=== PATIENT | female | born 1975 | race Caucasian/White ===

== ENCOUNTER 2021-04-13 23:00 | Emergency (ER) | payer OTHER ==
[2021-04-13] MEDS ORDERED: Ondansetron 4 MG Tab.DIS PO ONE (23:26)
[2021-04-13] MEDS ORDERED: Acetaminophen/oxyCODONE 325-5 MG Tab PO ONE (23:27)
[2021-04-13] MEDS ORDERED: Amoxicillin/Clavulanate K 500-125 MG Tab PO ONE (23:27)
--- NOTE | 2021-04-13 23:29 | EDM.PDOC ---
ED HPI GENERAL MEDICAL PROBLEM - General Chief Complaint: ENT Problem Stated Complaint: PAIN FROM A BROKEN TOOTH Time Seen by Provider: 04/13/21 23:23 Source of Information: Reports: Patient History Limitations: Reports: No Limitations - History of Present Illness INITIAL COMMENTS - FREE TEXT/NARRATIVE: 45-year-old female presents to the ED with pain coming from solitary right upper molar tooth. The rest of been removed. This appears to be her second molar tooth that is involved. She thinks that she broke the tooth off a few days ago. It is constant throbbing pulsating pain in the right side of her face towards her right ear. Difficult to eat on that side. Tylenol Motrin so far at home have not relieved the pain. Onset: Gradual Onset Date: 04/10/21 Duration: Day(s):, Getting Worse Location: Reports: Face (Dental pain right upper molar) Quality: Reports: Ache, Throbbing, Other Severity: Moderate (Sating) Improves with: Reports: None ( to 10) Worsens with: Reports: Other (Planning to eat or chew.) Associated Symptoms: Reports: No Other Symptoms Treatments SPECIMEN COLLECTOR: Reports: Acetaminophen, NSAIDS (Membreno.) Right Upper Tooth/Teeth Pain Score (Numeric/FACES): 10 - Related Data Allergies Allergy/AdvReac Type Severity Reaction Status Date / Time alcohol Allergy Difficulty Verified 04/13/21 23:19 Breathing cortisone Allergy Swelling Verified 04/13/21 23:19 ropinirole [From Requip] Allergy Nausea and Verified 04/13/21 23:19 Vomiting Home Meds: Home Meds Clindamycin HCl 300 mg PO TID #24 capsule 04/13/21 [Rx] oxyCODONE HCl/Acetaminophen [Percocet 5-325 mg Tablet] 1 - 2 each PO Q4H PRN #16 tablet 04/13/21 [Rx] Past Medical History Endocrine/Metabolic History: Reports: Obesity/BMI 30+ ED ROS ENT - Review of Systems Review Of Systems: See Below Constitutional: Reports: Fatigue, Decreased Appetite (Not sleeping well the last few nights.). Denies: Fever, Chills, Malaise, Weakness HEENT: Reports: Dental Pain Respiratory: Reports: No Symptoms (Right upper molar tooth. She only has one present the rest of been previously excised.) Cardiovascular: Reports: No Symptoms Endocrine: Reports: No Symptoms GI/Abdominal: Reports: No Symptoms : Reports: No Symptoms Musculoskeletal: Reports: No Symptoms Skin: Reports: No Symptoms Neurological: Reports: No Symptoms Psychiatric: Reports: No Symptoms Hematologic/Lymphatic: Reports: No Symptoms Immunologic: Reports: No Symptoms ED EXAM, ENT - Physical Exam Exam: See Below Exam Limited By: No Limitations General Appearance: Alert, WD/WN, Mild Distress, Other (Patient is holding onto her right mandible and pain. Temperature is 36.7 with a heart rate of 93 in sinus respiratory is 20 with O2 sats 100% room air. BP is 133/84.) Eye Exam: Bilateral Eye: Normal Inspection (No scleral icterus or blepharal pallor.), PERRL Mouth/Throat: Dental Pain (Patient's pain is coming from her right upper second molar tooth which is the only tooth in that area. It appears to have a dental carry on the anterior surface and is been previously filled. The surrounding gingiva are markedly inflamed and swollen both on the buccal and lingual surfaces. There ) Head: Atraumatic, Normocephalic Neck: Normal Inspection, Supple, Non-Tender, Full Range of Motion. No: Lymphadenopathy (L), Lymphadenopathy (R) Respiratory/Chest: No Respiratory Distress Course - Vital Signs Last Recorded V/S: Last Vital Signs Temp 36.7 C 04/13/21 23:10 Pulse 93 04/13/21 23:10 Resp 20 04/13/21 23:10 BP 133/84 04/13/21 23:10 Pulse Ox 100 04/13/21 23:10 - Orders/Labs/Meds Meds: Medications Discontinued Medications Generic Name Dose Route Start Last Admin Trade Name Kath PRN Reason Stop Dose Admin Amoxicillin/Clavulanate Potassium 1 tab 04/13/21 23:27 04/13/21 23:41 Amoxicillin/Clavulanate K 500-125 Mg Tab PO 04/13/21 23:28 1 tab ONETIME ONE Administration Ondansetron HCl 4 mg 04/13/21 23:26 04/13/21 23:41 Ondansetron 4 Mg Tab.Dis PO 04/13/21 23:27 4 mg ONETIME ONE Administration Oxycodone/Acetaminophen 2 tab 04/13/21 23:27 04/13/21 23:41 Acetaminophen/Oxycodone 325-5 Mg Tab PO 04/13/21 23:28 2 tab ONETIME ONE Administration - Radiology Interpretation Free Text/Narrative:: 45-year-old female presents to the ED with a 3-day history of increasing pain right upper second molar tooth. She believes that the tooth is fractured a few days ago. However on examination the tooth is just badly infected clinically. There is dental caries. The tooth is been previously filled. It is her second molar tooth and is the only tooth that still available are still present in the right upper maxilla. Treatment will be started in the ED with Augmentin 500/125 mg tablet by mouth and Percocet 5/325 mg tablet x2 with Zofran 4 mg sublingual for pain and nausea relief. The plan will be to place her on Percocet tabs 5/322 5 mg tablets 1 or 2 every 4-6 hours necessary for pain relief with Motrin 600 mg every 6 hours. Antibiotic as an outpatient will be clindamycin 300 mg 3 times daily for the next 8 days. Patient will seek out dental care when available this next week. Departure - Departure Time of Disposition: 23:27 Disposition: Home, Self-Care 01 Condition: Fair Clinical Impression: Dental infection - Discharge Information *PRESCRIPTION DRUG MONITORING PROGRAM REVIEWED*: Not Applicable *COPY OF PRESCRIPTION DRUG MONITORING REPORT IN PATIENT ERNA: Not Applicable Prescriptions: Clindamycin HCl 300 mg PO TID #24 capsule oxyCODONE HCl/Acetaminophen [Percocet 5-325 mg Tablet] 1 - 2 each PO Q4H PRN #16 tablet PRN Reason: pain relief. Instructions: Dental Abscess, [id number] Referrals: PCP,Not In Area [Primary Care Provider] - Forms: ED Department Discharge Additional Instructions: Evaluation in the emergency room today in regards to painful right upper second molar tooth. The tooth is badly decayed and likely has an underlying infection. It has been filled in the past. The surrounding gingiva around the tooth is significantly swollen and inflamed suggesting underlying infective process. The tooth has a bad dental caries which is likely causing pain. Treatment in the ED was Percocet 5/3 2 5 mg tablets x2 with Zofran 4 mg under the tongue to make sure that the pain medicine does not make you throw up. First dose of antibiotic was Augmentin 500 mg by mouth as well. Treatment at [facility] as an outpatient will be to have the tooth seen by dentist as soon as possible. You will need to take antibiotic clindamycin 300 mg 3 times daily for the next 8 days and Percocet tabs 5/3 2 5 mg strength 1 or 2 every 4-6 hours with Motrin 600 mg every 6 hours to relieve pain and inflammation. Very often 1 pain pill and 600 mg of Motrin every 6 hours will bring the pain under control. Sepsis Event Note (ED) - Evaluation Sepsis Screening Result: No Definite Risk - Focused Exam Vital Signs: Vital Signs Temp Pulse Resp BP Pulse Ox 04/13/21 23:10 36.7 C 93 20 133/84 100
== END 2021-04-14 00:20 | disposition home or self-care (01) ==
LOC: JD.ED 23:00
DX: K04.7 Periapical abscess without sinus (principal); E66.9 Obesity, unspecified; Z68.35 Body mass index [BMI] 35.0-35.9, adult; Z88.8 Allergy status to other drugs, medicaments and biological substances
CPT/HCPCS: 99282; A9270; 99283

== ENCOUNTER 2021-07-09 00:54 | Emergency (ER) | payer MEDICAID ==
--- NOTE | 2021-07-09 02:08 | EDM.PDOC ---
ED HPI GENERAL MEDICAL PROBLEM - General Chief Complaint: Genitourinary Problem Stated Complaint: LOSS OF BLADDER CONTROL Time Seen by Provider: 07/09/21 02:08 - History of Present Illness INITIAL COMMENTS - FREE TEXT/NARRATIVE: 45-year-old female presents to the emergency room with urinary complaint. Over the last 5 or 6 days the patient's had difficulty controlling her urine. At times she has no warning before she has to go and will start dribbling. She has some frequency but has not had a lot of discomfort when she goes. Has not had any fevers or chills. She has not had any blood. She has had a significant history of a hysterectomy and has had lithotripsy in the past. 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 in the rule out process of neuromylitis optica. Left ear shunt put in (drain) 1989 Cardiovascular History: Reports: Other (See Below) Other Cardiovascular History: central sleep apnea. Positive bubble test. Gastrointestinal History: Reports: GERD Genitourinary History: Reports: Renal Calculus, Other (See Below) Other Genitourinary History: Stage 3 kidney disease. Neurological History: Reports: Other (See Below) Other Neuro History: TBI 2000 Psychiatric History: Reports: Depression Endocrine/Metabolic History: Reports: Hypothyroidism, Obesity/BMI 30+ Other Endocrine/Metabolic History: Pre diabetic Hematologic History: Reports: Other (See Below) Other Hematologic History: hypercoagulation - Past Surgical History GI Surgical History: Reports: Cholecystectomy, Other (See Below) Other GI Surgeries/Procedures: hiatal hernia Female Surgical History: Reports: Hysterectomy, Lithotripsy/ESWL Other Female Surgeries/Procedures: 13 lithotripsys. Positve lupus test in 11/2020 Social & Family History - Tobacco Use Tobacco Use Status *Q: Unknown Ever Used Tobacco - Caffeine Use Caffeine Use: Reports: None ED ROS GENERAL - Review of Systems Review Of Systems: See Below Constitutional: Reports: No Symptoms HEENT: Reports: No Symptoms Respiratory: Reports: No Symptoms Cardiovascular: Reports: No Symptoms GI/Abdominal: Reports: Abdominal Pain (In the lower abdomen). Denies: Constipation, Diarrhea, Nausea, Vomiting : Reports: Frequency, Urgency. Denies: Flank Pain Musculoskeletal: Reports: No Symptoms Skin: Reports: No Symptoms Neurological: Reports: No Symptoms ED EXAM, GENERAL - Physical Exam Exam: See Below Exam Limited By: No Limitations General Appearance: Alert, No Apparent Distress, Obese Head: Atraumatic, Normocephalic Neck: Normal Inspection, Supple, Non-Tender, Full Range of Motion Respiratory/Chest: No Respiratory Distress, Lungs Clear, Normal Breath Sounds Cardiovascular: Regular Rate, Rhythm, No Edema, No Murmur GI/Abdominal: Normal Bowel Sounds, Soft, Tender (She has some suprapubic discomfort otherwise no palpable discomfort). No: Guarding, Rigid, Rebound Back Exam: Normal Inspection. No: CVA Tenderness (L), CVA Tenderness (R) Neurological: Alert, Oriented, Normal Cognition Course - Vital Signs Last Recorded V/S: Last Vital Signs Temp 36.8 C 07/09/21 01:07 Pulse 86 07/09/21 01:07 Resp 15 07/09/21 01:07 BP 118/83 07/09/21 01:07 Pulse Ox 99 07/09/21 01:07 - Orders/Labs/Meds Orders: Active Orders 24 hr Category Date Time Status Abdomen Pelvis wo Cont [CT] Stat Exams 07/09/21 02:51 Taken Lumbar Spine wo Cont [CT] Stat Exams 07/09/21 02:51 Taken CULTURE URINE [MREF] Stat Lab 07/09/21 02:03 Received Labs: Laboratory Tests 07/09/21 Range/Units 02:05 Urine Color Yellow (Yellow) Urine Appearance Slt cloudy H (Clear) Urine pH 5.5 (5.0-8.0) Ur Specific [place] 1.025 (1.005-1.030) Urine Protein Negative (Negative) Urine Glucose (UA) Negative (Negative) Urine Ketones Negative (Negative) Urine Occult Blood 2+ H (Negative) Urine Nitrite Negative (Negative) Urine Bilirubin Negative (Negative) Urine Urobilinogen 0.2 (0.2-1.0) Ur Leukocyte Esterase 1+ H (Negative) Urine RBC 40-50 H (0-5) /hpf Urine WBC 10-20 H (0-5) /hpf Ur Squamous Epith Cells 0-5 (0-5) /hpf Urine Bacteria Few (FEW) /hpf Urine Mucus Few (FEW) /hpf Meds: Medications Discontinued Medications Generic Name Dose Route Start Last Admin Trade Name Freq PRN Reason Stop Dose Admin Cefdinir 300 mg 07/09/21 04:34 07/09/21 04:45 Cefdinir 300 Mg Cap PO 07/09/21 04:35 300 mg ONETIME ONE Administration - Re-Assessments/Exams Free Text/Narrative Re-Assessment/Exam: 07/09/21 04:31 Urinalysis shows quite a bit of microscopic hematuria. Positive leukocyte Estrace nitrates negative. Noted CT of the lumbar spine and a CT KUB she is got a large nonobstructing stone in the lower pole of the left kidney this measures 10.6 x 4.4 mm. The patient will be started on Omnicef 300 mg twice daily if the hematuria does not improve as well as her urinary symptoms she will need to see urology. Departure - Departure Time of Disposition: 04:33 Disposition: Home, Self-Care 01 Clinical Impression: Microscopic hematuria, Hemorrhagic cystitis - Discharge Information Prescriptions: Cefdinir [Omnicef] 300 mg PO BID #13 cap Instructions: Hemorrhagic Cystitis Referrals: Jalen Ojeda [employer] [Primary Care Provider] - Forms: ED Department Discharge Additional Instructions: Return to the emergency room with any questions problems or worsening symptoms. You have been started on an antibiotic you take 1 twice daily until all gone. Your first dose was given here in the emergency room. Follow-up with your regular healthcare provider in a couple of days for recheck. Sepsis Event Note (ED) - Evaluation Sepsis Screening Result: No Definite Risk - Focused Exam Vital Signs: Vital Signs Temp Pulse Resp BP Pulse Ox 07/09/21 01:07 36.8 C 86 15 118/83 99 - My Orders Last 24 Hours: My Active Orders 07/09/21 02:03 CULTURE URINE [MREF] Stat 07/09/21 02:51 Abdomen Pelvis wo Cont [CT] Stat Lumbar Spine wo Cont [CT] Stat - Assessment/Plan Last 24 Hours: My Active Orders 07/09/21 02:03 CULTURE URINE [MREF] Stat 07/09/21 02:51 Abdomen Pelvis wo Cont [CT] Stat Lumbar Spine wo Cont [CT] Stat
[2021-07-09] MEDS ORDERED: Cefdinir 300 MG Cap PO ONE (04:34)
--- NOTE | 2021-07-09 08:27 | CT ---
CT abdomen and pelvis Technique: Multiple axial sections were obtained from above the dome of the diaphragm inferiorly through the pubic symphysis. Intravenous and oral contrast were not utilized. Study has been performed as a ureteral stone protocol. Comparison: No prior abdominal imaging is available. Findings: Left kidney shows an approximate 1.2 cm calcification within the inferior aspect compatible with a nonobstructing calculus. Ureters show no dilatation or abnormal calcifications. Bladder shows no abnormal calcifications. Visualized lung bases show nothing acute. Noncontrast appearance of the liver shows no focal abnormality. Surgical clips are noted from prior cholecystectomy. Spleen size is normal. Adrenal glands show no nodule. Pancreas shows no discrete abnormality. No retroperitoneal adenopathy or mesenteric abnormalities are seen. No pelvic mass or adenopathy is seen. No free fluid or inflammatory change is seen. No bowel dilatation is appreciated. Appendix is seen which is normal in size. Bone window settings were reviewed which show no acute osseous abnormality. Impression: 1. Nonobstructing stone within the lower left kidney measuring approximately 1.2 cm. No ureteral dilatation or ureteral calculus is seen. 2. Prior cholecystectomy. 3. Nothing acute is seen on noncontrast CT study of the abdomen and pelvis. Diagnostic code #2 I agree with preliminary report from [facility], finalized on 07/09/21, 5:11 AM CDT, code 1
--- NOTE | 2021-07-09 08:32 | CT ---
CT lumbar spine Technique: Multiple axial sections were obtained from the mid T8 level inferiorly through the sacrum. Reconstructed coronal and sagittal images were obtained. Compaon: No prior lumbar spine imaging is available. Mild disc space narrowing is seen within the T8-9 disc inferiorly through the posterior L3-4 disc. Mild disc space narrowing is also noted posteriorly at L5-S1. Posterior discs are fairly well preserved. No discrete fracture or subluxation is seen. No bony central or bony neural foraminal stenosis is seen. Nonobstructing calculus is noted within the lower left kidney as mentioned on CT abdomen and pelvis study. Impression: 1. Minimal degenerative change as noted above. 2. Stable calcification as mentioned on prior CT abdomen and pelvis within the left kidney. 3. Nothing acute is appreciated. Note: Given patient's symptoms, consider lumbar spine MRI to further evaluate. Diagnostic code #2 I agree with preliminary report from [facility], finalized on 07/09/21, 5:06 AM CDT, code 1
== END 2021-07-09 04:47 | disposition home or self-care (01) ==
LOC: JD.ED 00:54
DX: N30.90 Cystitis, unspecified without hematuria (principal); R31.29 Other microscopic hematuria; E66.9 Obesity, unspecified; Z68.38 Body mass index [BMI] 38.0-38.9, adult; Z91.048 Other nonmedicinal substance allergy status; Z88.8 Allergy status to other drugs, medicaments and biological substances
CPT/HCPCS: 72131; 74176; 81001; 87086; 99283; A9270

== ENCOUNTER 2021-10-23 11:43 | Emergency (ER) | payer MEDICAID ==
[2021-10-23] MEDS ORDERED: Metoclopramide 10 MG/2 ML SDV IVPUSH ONE (12:12)
[2021-10-23] MEDS ORDERED: diphenhydrAMINE 50 MG/ML SDV IVPUSH ONE (12:12)
[2021-10-23] MEDS ORDERED: Sodium Chloride 0.9% 10 ML Syringe FLUSH PRN (12:12)
[2021-10-23] MEDS ORDERED: Ketorolac 30 MG/ML SDV IVPUSH ONE (12:12)
[2021-10-23] MEDS ORDERED: Sodium Chloride 0.9% 1,000 ML IV ONE (12:17)
--- NOTE | 2021-10-23 12:21 | EDM.PDOC ---
ED HPI GENERAL MEDICAL PROBLEM - General Chief Complaint: Respiratory Problem Stated Complaint: CONGESTION SOB Time Seen by Provider: 10/23/21 11:59 Source of Information: Reports: Patient, RN Notes Reviewed History Limitations: Reports: No Limitations - History of Present Illness INITIAL COMMENTS - FREE TEXT/NARRATIVE: Patient is a 45-year-old female who presents to the ER for evaluation of her headache, cough, congestion, shortness of breath. States that she had Covid at the beginning of September, and received monoclonal antibodies for this. States that she was feeling better from this but for the last 5 days she has had a headache, that is pretty severe states that she has not had a headache like this in the past. She is having congestion, cough, and she states that when she coughs it makes the headache worse. Had a slight fever at the symptom onset 5 days ago. Been trying Tylenol/ibuprofen for the headache but nothing seems to really be working. States that she is having nausea today, due to the headache. She has had maybe 2 episodes of vomiting as well. 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 in the rule out process of neuromylitis optica. Left ear shunt put in (drain) 1989 Cardiovascular History: Reports: Other (See Below) Other Cardiovascular History: central sleep apnea. Positive bubble test. Gastrointestinal History: Reports: GERD Genitourinary History: Reports: Renal Calculus, Other (See Below) Other Genitourinary History: Stage 3 kidney disease. Neurological History: Reports: Other (See Below) Other Neuro History: TBI 2000 Psychiatric History: Reports: Depression Endocrine/Metabolic History: Reports: Hypothyroidism, Obesity/BMI 30+ Other Endocrine/Metabolic History: Pre diabetic Hematologic History: Reports: Other (See Below) Other Hematologic History: hypercoagulation - Infectious Disease History Infectious Disease History: Reports: Novel Coronavirus (09/2021) - Past Surgical History GI Surgical History: Reports: Cholecystectomy, Other (See Below) Other GI Surgeries/Procedures: hiatal hernia Female Surgical History: Reports: Hysterectomy, Lithotripsy/ESWL Other Female Surgeries/Procedures: 15 lithotripsys. Positve lupus test in 11/2020 Social & Family History - Tobacco Use Tobacco Use Status *Q: Never Tobacco User Second Hand Smoke Exposure: No - Caffeine Use Caffeine Use: Reports: None - Recreational Drug Use Recreational Drug Use: No ED ROS GENERAL - Review of Systems Review Of Systems: Comprehensive ROS is negative, except as noted in HPI. ED EXAM, GENERAL - Physical Exam Exam: See Below Exam Limited By: No Limitations General Appearance: Alert, WD/WN, No Apparent Distress Respiratory/Chest: No Respiratory Distress, Lungs Clear, Normal Breath Sounds, No Accessory Muscle Use, Chest Non-Tender, Other (pt does have a congested non productive coughon exam) Cardiovascular: Normal Peripheral Pulses, Regular Rate, Rhythm, No Edema GI/Abdominal: Normal Bowel Sounds, Soft, Non-Tender, No Distention, No Mass Extremities: Normal Inspection, Normal Capillary Refill Neurological: Alert, Oriented, Normal Cognition, No Motor/Sensory Deficits Psychiatric: Normal Affect, Normal Mood Skin Exam: Warm, Dry, Intact, Normal Color, No Rash Course - Vital Signs Last Recorded V/S: Last Vital Signs Temp 97.8 F 10/23/21 12:08 Pulse 87 10/23/21 12:08 Resp 16 10/23/21 12:08 BP 111/72 10/23/21 12:08 Pulse Ox 95 10/23/21 12:08 - Orders/Labs/Meds Orders: Active Orders 24 hr Category Date Time Status Peripheral IV Care [RC] . DIRECTED Care 10/23/21 12:12 Ordered Sodium Chloride 0.9% [Saline Flush] Med 10/23/21 12:12 Ordered 10 ml FLUSH ASDIRECTED PRN Isolation [COMM] Routine Oth 10/23/21 13:20 Ordered Peripheral IV Insertion Adult [OM.PC] Routine Oth 10/23/21 12:12 Ordered Medication Orders Sodium Chloride (Sodium Chloride 0.9% 10 Ml Syringe) 10 ml FLUSH ASDIRECTED PRN PRN Reason: Keep Vein Open Last Admin: 10/23/21 12:43 Dose: 10 ml Documented by: CALEB Labs: Laboratory Tests 10/23/21 10/23/21 10/23/21 Range/Units 12:05 12:40 12:40 WBC 6.49 (3.98-10.04) K/mm3 RBC 4.40 (3.98-5.22) M/mm3 Hgb 12.1 (11.2-15.7) gm/dl Hct 38.2 (34.1-44.9) % MCV 86.8 (79.4-94.8) fl MCH 27.5 (25.6-32.2) pg MCHC 31.7 L (32.2-35.5) g/dl RDW Std Deviation 45.6 (36.4-46.3) fL Plt Count 268 (182-369) K/mm3 MPV 9.7 (9.4-12.3) fl Neut % (Auto) 64.7 (34.0-71.1) % Lymph % (Auto) 21.1 (19.3-51.7) % Garfield % (Auto) 9.4 (4.7-12.5) % Eos % (Auto) 3.9 (0.7-5.8) Baso % (Auto) 0.6 (0.1-1.2) % Neut # (Auto) 4.20 (1.56-6.13) K/mm3 Lymph # (Auto) 1.37 (1.18-3.74) K/mm3 Garfield # (Auto) 0.61 H (0.24-0.36) K/mm3 Eos # (Auto) 0.25 (0.04-0.36) K/mm3 Baso # (Auto) 0.04 (0.01-0.08) K/mm3 Sodium 137 (136-145) mEq/L Potassium 4.1 (3.5-5.1) mEq/L Chloride 102 (98-107) mEq/L Carbon Dioxide 28 (21-32) mEq/L Anion Gap 11.1 (5-15) BUN 11 (7-18) mg/dL Creatinine 1.3 H (0.55-1.02) mg/dL Est Cr Clr Drug Dosing 52.02 mL/min Estimated GFR (MDRD) 44 (>60) mL/min BUN/Creatinine Ratio 8.5 L (14-18) Glucose 112 H (70-99) mg/dL Calcium 8.4 L (8.5-10.1) mg/dL Total Bilirubin 0.5 (0.2-1.0) mg/dL AST 22 (15-37) U/L ALT 26 (14-59) U/L Alkaline Phosphatase 92 (46-116) U/L Total Protein 7.4 (6.4-8.2) g/dl Albumin 3.3 L (3.4-5.0) g/dl Globulin 4.1 gm/dL Albumin/Globulin Ratio 0.8 L (1-2) Influenza Type A RNA Negative (NEGATIVE) RSV RNA (INAAT) Positive H (NEGATIVE) Influenza Type B RNA Negative (NEGATIVE) Meds: Medications Generic Name Dose Route Start Last Admin Trade Name Freq PRN Reason Stop Dose Admin Sodium Chloride 10 ml 10/23/21 12:12 10/23/21 12:43 Sodium Chloride 0.9% 10 Ml Syringe FLUSH 10 ml ASDIRECTED PRN Administration Keep Vein Open Discontinued Medications Generic Name Dose Route Start Last Admin Trade Name Freq PRN Reason Stop Dose Admin Diphenhydramine HCl 25 mg 10/23/21 12:12 10/23/21 12:43 Diphenhydramine 50 Mg/Ml Sdv IVPUSH 10/23/21 12:13 25 mg ONETIME ONE Administration Sodium Chloride 1,000 mls @ 999 mls/hr 10/23/21 12:17 10/23/21 12:43 Normal Saline IV 10/23/21 13:17 999 mls/hr ONETIME ONE Administration Ketorolac Tromethamine 30 mg 10/23/21 12:12 10/23/21 12:43 Ketorolac 30 Mg/Ml Sdv IVPUSH 10/23/21 12:13 30 mg ONETIME ONE Administration Metoclopramide HCl 10 mg 10/23/21 12:12 10/23/21 12:43 Metoclopramide 10 Mg/2 Ml Sdv IVPUSH 10/23/21 12:13 10 mg ONETIME ONE Administration - Re-Assessments/Exams Free Text/Narrative Re-Assessment/Exam: 10/23/21 12:20 Patient presents to the ER for evaluation of her cough/cold symptoms. She will be tested for influenza and RSV. Patient did have COVID at the beginning of September 2021 so Covid test will not be performed at today's visit. We will also get some basic labs, get IV started give her some fluids and medication for her headache. 2 view chest x-ray to be obtained. 10/23/21 13:49 Patient states that her headache feels better after medications rendered. Chest x-ray demonstrates no acute abnormalities, labs were also unremarkable. Patient did test positive for RSV. Return precautions were discussed with the patient, we will go ahead and give her some oral nausea medications to try at home with combination of ibuprofen and have her return to care if not feeling much better. Departure - Departure Time of Disposition: 13:51 Disposition: Home, Self-Care 01 Condition: Good Clinical Impression: RSV (respiratory syncytial virus infection) Headache Qualifiers: Headache type: unspecified Headache chronicity pattern: acute headache Intractability: not intractable Qualified Code(s): R51.9 - Headache, unspecified - Discharge Information *PRESCRIPTION DRUG MONITORING PROGRAM REVIEWED*: No *COPY OF PRESCRIPTION DRUG MONITORING REPORT IN PATIENT ERNA: No Instructions: Respiratory Syncytial Virus Infection, Adult Referrals: PCP,None [Primary Care Provider] - Forms: ED Department Discharge Additional Instructions: You were evaluated in the ER today for your cold-like symptoms and headache. You were given some medications for your headache and this seemed to help relieve most your symptoms. You did test positive for RSV, which is another cold virus. You should hopefully be getting better in a few days time. This can mimic typical cold-like symptoms, cough, congestion, fevers. All other labs are essentially unremarkable for acute findings at today's visit. Your chest x-ray also was negative for any acute processes like pneumonia or bronchitis. You have been given a prescription for an antinausea medication may take 1 tab every 6 hours as needed for ongoing nausea. This medication was electronically sent to the [facility] located near [facility]. I would recommend taking this in combination with 600 mg ibuprofen if you continue to have ongoing headaches. You may also take 25 mg oral Benadryl in conjunction for your headaches, as these were the types of medications given to you at today's visit, and these seem to help relieve your headache. Do not hesitate to return to the ER if symptoms change or worsen. Sepsis Event Note (ED) - Evaluation Sepsis Screening Result: No Definite Risk - Focused Exam Vital Signs: Vital Signs Temp Pulse Resp BP Pulse Ox 10/23/21 12:08 97.8 F 87 16 111/72 95 - My Orders Last 24 Hours: My Active Orders 10/23/21 12:12 Peripheral IV Care [RC] . DIRECTED Sodium Chloride 0.9% [Saline Flush] 10 ml FLUSH ASDIRECTED PRN Peripheral IV Insertion Adult [OM.PC] Routine 10/23/21 13:20 Isolation [COMM] Routine - Assessment/Plan Last 24 Hours: My Active Orders 10/23/21 12:12 Peripheral IV Care [RC] . DIRECTED Sodium Chloride 0.9% [Saline Flush] 10 ml FLUSH ASDIRECTED PRN Peripheral IV Insertion Adult [OM.PC] Routine 10/23/21 13:20 Isolation [COMM] Routine
--- NOTE | 2021-10-23 13:43 | CR ---
EXAM: XR CHEST 2 VIEWS LOCATION: [facility] DATE/TIME: 10/23/2021, 1:13 PM INDICATION: Cough/congestion. COMPARISON: None. IMPRESSION: Stimulator device in the region of the azygos vein. The lungs are clear. Heart size normal. SIGNED BY: Baldemar Rogel MD 10/23/2021 2:36 PM [facility]
== END 2021-10-23 14:15 | disposition home or self-care (01) ==
LOC: JD.ED 11:43
DX: R51.9 Headache, unspecified (principal); B97.4 Respiratory syncytial virus as the cause of diseases classified elsewhere; E03.9 Hypothyroidism, unspecified; E66.9 Obesity, unspecified; Z68.30 Body mass index [BMI] 30.0-30.9, adult; Z91.048 Other nonmedicinal substance allergy status; Z88.8 Allergy status to other drugs, medicaments and biological substances; Z86.16 Personal history of COVID-19
CPT/HCPCS: 36415; 71046; 80053; 85025; 87502; 87634; 96374; 96375; 99285; J1200; J1885; J2765; J7030

== ENCOUNTER 2022-03-03 15:10 | Emergency (ER) | payer MEDICARE ==
[2022-03-03] MEDS ORDERED: Sodium Chloride 0.9% 10 ML Syringe FLUSH PRN (15:20)
== END 2022-03-03 17:23 | disposition home or self-care (01) ==
LOC: JD.ED 15:10
DX: R07.89 Other chest pain (principal); E03.9 Hypothyroidism, unspecified; E66.9 Obesity, unspecified; Z68.30 Body mass index [BMI] 30.0-30.9, adult; Z86.16 Personal history of COVID-19; Z90.49 Acquired absence of other specified parts of digestive tract; Z90.710 Acquired absence of both cervix and uterus; Z79.899 Other long term (current) drug therapy; Z91.048 Other nonmedicinal substance allergy status; Z88.8 Allergy status to other drugs, medicaments and biological substances
CPT/HCPCS: 36415; 71045; 80053; 83735; 83880; 84484; 85025; 85610; 85730; 93005; 99285; J3490

== ENCOUNTER 2022-03-27 08:53 | Emergency (ER) | payer MEDICAID ==
[2022-03-27] MEDS ORDERED: Ondansetron 4 MG/2 ML SDV IVPUSH ONE (09:18)
[2022-03-27] MEDS ORDERED: Morphine 2 MG/ML SYRINGE IVPUSH ONE (09:19)
[2022-03-27] MEDS ORDERED: Lactated Ringers 1,000 ML IV SCH (09:30)
== END 2022-03-27 12:20 | disposition home or self-care (01) ==
LOC: JD.ED 08:53
DX: N20.0 Calculus of kidney (principal); N39.0 Urinary tract infection, site not specified; K21.9 Gastro-esophageal reflux disease without esophagitis; E03.9 Hypothyroidism, unspecified; E66.9 Obesity, unspecified; Z68.30 Body mass index [BMI] 30.0-30.9, adult; Z86.16 Personal history of COVID-19; Z90.49 Acquired absence of other specified parts of digestive tract; Z90.710 Acquired absence of both cervix and uterus; Z79.899 Other long term (current) drug therapy; Z79.84 Long term (current) use of oral hypoglycemic drugs; Z91.048 Other nonmedicinal substance allergy status; Z88.8 Allergy status to other drugs, medicaments and biological substances
CPT/HCPCS: 36415; 74176; 80053; 81001; 85025; 87086; 96361; 96374; 96375; 99284; J2270; J2405; J7120; 99283

== ENCOUNTER 2022-05-06 10:24 | Day surgery (SDC) | payer MEDICAID ==
[~2022-05-06 10:24] MED LIST: Lactated Ringers 1,000 ML IV SCH; Lidocaine 1%/Sod Bicarbonate in NS 8.4% 1 ML Syringe IDERM PRN; Sodium Chloride 0.9% 10 ML Syringe FLUSH PRN; Sodium Chloride 0.9% 10 ML Syringe FLUSH SCH
[2022-05-06] MEDS ORDERED: Propofol 200 MG/20 ML SDV ONE (11:19)
[2022-05-06] MEDS ORDERED: Lidocaine 1% 6 ML ONE (11:20)
== END 2022-05-06 12:40 | disposition home or self-care (01) ==
LOC: JD.SDS 10:24
PROVIDERS: ATTEND Surgery
DX: K29.50 Unspecified chronic gastritis without bleeding (principal); K31.89 Other diseases of stomach and duodenum; F41.9 Anxiety disorder, unspecified; F32.A Depression, unspecified; N18.30 Chronic kidney disease, stage 3 unspecified; E78.00 Pure hypercholesterolemia, unspecified; E03.9 Hypothyroidism, unspecified; K21.9 Gastro-esophageal reflux disease without esophagitis; E66.9 Obesity, unspecified; G62.9 Polyneuropathy, unspecified; G25.81 Restless legs syndrome; E11.22 Type 2 diabetes mellitus with diabetic chronic kidney disease; G47.33 Obstructive sleep apnea (adult) (pediatric); Z86.16 Personal history of COVID-19; E55.9 Vitamin D deficiency, unspecified; Z88.8 Allergy status to other drugs, medicaments and biological substances; Z79.899 Other long term (current) drug therapy; Z79.890 Hormone replacement therapy; Z98.890 Other specified postprocedural states
CPT/HCPCS: 43239; J2704; J7120

== ENCOUNTER 2022-05-11 19:01 | Emergency (ER) | payer MEDICAID ==
[2022-05-11] MEDS ORDERED: Sodium Chloride 0.9% 10 ML Syringe FLUSH PRN (19:48)
[2022-05-11] MEDS ORDERED: HYDROmorphone 0.5 MG/0.5 ML Syringe IVPUSH ONE (19:53)
[2022-05-11] MEDS ORDERED: Sodium Chloride 0.9% 1,000 ML IV STA (19:53)
[2022-05-11] MEDS ORDERED: Ondansetron 4 MG/2 ML SDV IVPUSH ONE (19:53)
[2022-05-11 20:40] LABS: ESTIMATED GFR 43 mL/min (>60)
[2022-05-11] MEDS ORDERED: Ketorolac 30 MG/ML SDV IVPUSH ONE (21:16)
[2022-05-11] MEDS ORDERED: Levofloxacin 500 MG Tab PO ONE (22:08)
== END 2022-05-11 21:56 | disposition home or self-care (01) ==
LOC: JD.ED 19:01
DX: N39.0 Urinary tract infection, site not specified (principal); E03.9 Hypothyroidism, unspecified; E11.9 Type 2 diabetes mellitus without complications; E66.9 Obesity, unspecified; Z68.30 Body mass index [BMI] 30.0-30.9, adult; Z88.8 Allergy status to other drugs, medicaments and biological substances; Z91.048 Other nonmedicinal substance allergy status; Z79.899 Other long term (current) drug therapy; Z79.84 Long term (current) use of oral hypoglycemic drugs; Z90.710 Acquired absence of both cervix and uterus; Z86.16 Personal history of COVID-19; Z90.49 Acquired absence of other specified parts of digestive tract
CPT/HCPCS: 36415; 74176; 80053; 81001; 85025; 86140; 87086; 96374; 96375; 99284; J1170; J1885; J2405; J3490; J7030

== ENCOUNTER 2022-06-18 22:31 | Emergency (ER) | payer MEDICAID ==
[2022-06-19] MEDS ORDERED: Famotidine 20 MG Tab PO ONE (00:50)
[2022-06-19] MEDS ORDERED: Alum Hydrox/Mag Hydrox/Simeth 30 ML, Lidocaine 2% 15 ML PO ONE ×2 (00:51)
[2022-06-19] MEDS ORDERED: Sulfamethoxazole/Trimethoprim 800-160 MG Tab PO ONE (05:21)
[2022-06-19] MEDS ORDERED: Sucralfate 1 GM Tab PO ONE (05:23)
== END 2022-06-19 03:30 | disposition home or self-care (01) ==
LOC: JD.ED 22:31
DX: K21.9 Gastro-esophageal reflux disease without esophagitis (principal); N39.0 Urinary tract infection, site not specified; E11.40 Type 2 diabetes mellitus with diabetic neuropathy, unspecified; F41.9 Anxiety disorder, unspecified; F32.A Depression, unspecified; Z20.822 Contact with and (suspected) exposure to COVID-19; Z88.8 Allergy status to other drugs, medicaments and biological substances
CPT/HCPCS: 36415; 80053; 81001; 83690; 84484; 85007; 85027; 87635; 93005; 99285; A9270; U0002

== ENCOUNTER 2022-06-29 08:33 | Emergency (ER) | payer MEDICAID ==
[2022-06-29] MEDS ORDERED: HYDROmorphone 1 MG/ML Syringe IVPUSH ONE (09:22)
[2022-06-29] MEDS ORDERED: Metoclopramide 10 MG/2 ML SDV IVPUSH ONE (09:23)
[2022-06-29] MEDS ORDERED: Ketorolac 30 MG/ML SDV IVPUSH SCH (09:30)
[2022-06-29] MEDS ORDERED: Dextrose 5%-0.9% NaCl 1,000 ML IV SCH (09:30)
== END 2022-06-29 12:15 | disposition home or self-care (01) ==
LOC: JD.ED 08:33
DX: N13.2 Hydronephrosis with renal and ureteral calculous obstruction (principal); K59.01 Slow transit constipation; Z88.8 Allergy status to other drugs, medicaments and biological substances; E11.22 Type 2 diabetes mellitus with diabetic chronic kidney disease; N18.30 Chronic kidney disease, stage 3 unspecified; E03.9 Hypothyroidism, unspecified; E66.9 Obesity, unspecified; K21.9 Gastro-esophageal reflux disease without esophagitis; Z79.84 Long term (current) use of oral hypoglycemic drugs; Z79.899 Other long term (current) drug therapy
CPT/HCPCS: 74176; 96361; 96374; 96375; 99284; J1170; J1885; J2765; J7042

== ENCOUNTER 2022-09-13 14:39 | Emergency (ER) | payer MEDICAID ==
[2022-09-13] MEDS ORDERED: Ondansetron 4 MG/2 ML SDV IVPUSH ONE (15:35)
[2022-09-13] MEDS ORDERED: Sodium Chloride 0.9% 1,000 ML IV ONE (15:36)
[2022-09-13] MEDS ORDERED: Ketorolac 30 MG/ML SDV IVPUSH ONE (15:36)
[2022-09-13 16:48] LABS: ESTIMATED GFR 69 mL/min (>60)
== END 2022-09-13 17:36 | disposition home or self-care (01) ==
LOC: JD.ED 14:39
DX: N13.2 Hydronephrosis with renal and ureteral calculous obstruction (principal); R31.9 Hematuria, unspecified; E78.00 Pure hypercholesterolemia, unspecified; K21.9 Gastro-esophageal reflux disease without esophagitis; E11.22 Type 2 diabetes mellitus with diabetic chronic kidney disease; N18.30 Chronic kidney disease, stage 3 unspecified; E03.9 Hypothyroidism, unspecified; E66.9 Obesity, unspecified; Z68.30 Body mass index [BMI] 30.0-30.9, adult; Z88.8 Allergy status to other drugs, medicaments and biological substances; Z95.0 Presence of cardiac pacemaker; Z86.16 Personal history of COVID-19; Z79.899 Other long term (current) drug therapy
CPT/HCPCS: 36415; 74176; 80053; 85025; 96361; 96374; 96375; 99284; J1885; J2405; J7030

== ENCOUNTER 2023-03-11 13:32 | Emergency (ER) | payer SELFPAY ==
[2023-03-11] MEDS ORDERED: Ketorolac 60 MG/2 ML SDV IM ONE (14:33)
== END 2023-03-11 17:17 | disposition home or self-care (01) ==
LOC: JD.ED 13:32
DX: M79.652 Pain in left thigh (principal); E11.40 Type 2 diabetes mellitus with diabetic neuropathy, unspecified; E11.22 Type 2 diabetes mellitus with diabetic chronic kidney disease; N18.30 Chronic kidney disease, stage 3 unspecified; K21.9 Gastro-esophageal reflux disease without esophagitis; E78.00 Pure hypercholesterolemia, unspecified; E03.9 Hypothyroidism, unspecified; E66.9 Obesity, unspecified; Z95.0 Presence of cardiac pacemaker; Z88.8 Allergy status to other drugs, medicaments and biological substances; Z79.84 Long term (current) use of oral hypoglycemic drugs; Z86.16 Personal history of COVID-19; Z68.35 Body mass index [BMI] 35.0-35.9, adult
CPT/HCPCS: 93971; 96372; 99283; J1885

== ENCOUNTER 2023-04-17 23:51 | Emergency (ER) | payer MEDICAID ==
[2023-04-18 03:53] LABS: HEMATOCRIT 35.3 % (34.1-44.9); HEMOGLOBIN 11.2 gm/dl (11.2-15.7); MEAN CORPUSCULAR HEMOGLOBIN 27.3 pg (25.6-32.2); MEAN CORPUSCULAR HGB CONC 31.7 g/dl (32.2-35.5); MEAN CORPUSCULAR VOLUME 86.1 fl (79.4-94.8); MEAN PLATELET VOLUME 10.3 fl (9.4-12.3); PLATELET COUNT,PLT 216 K/mm3 (182-369); WHITE BLOOD CELL COUNT,WBC 9.92 K/mm3 (3.98-10.04)
[2023-04-18 04:02] LABS: CORONAVIRUS COVID-19 NAA NEGATIVE (NEGATIVE); INFLUENZA A NAA NEGATIVE (NEGATIVE); RESPIRATORY SYNCYTIAL VIR NAA NEGATIVE (NEGATIVE)
[2023-04-18 04:13] LABS: A/G RATIO 0.8 (1-2); ALBUMIN 3.2 g/dl (3.4-5.0); ANION GAP 14.3 (5-15); BILIRUBIN TOTAL 0.4 mg/dL (0.2-1.0); BUN/CREATININE RATIO 8.6 (14-18); C-REACTIVE PROTEIN 11.8 mg/dL (<1.0); CALCIUM 8.4 mg/dL (8.5-10.1); CREATININE 1.4 mg/dL (0.55-1.02); EST CRCL DRUG DOSING (CG) 43.74 mL/min; POTASSIUM,K 3.3 mEq/L (3.5-5.1); PROTEIN TOTAL,TP 7.3 g/dl (6.4-8.2)
[2023-04-18 04:14] LABS: BAND PERCENT MAN 0 % (0-10); BASOPHILS PERCENT MAN 1 (0.1-1.2); EOSINOPHILS PERCENT MAN 0 % (0.7-5.8); LYMPHOCYTES % ATYPICAL MANUAL 0 %; LYMPHOCYTES PERCENT MAN 13 % (20-40); MONOCYTES PERCENT MAN 10 % (2-10); PLATELET COUNT ESTIMATE ADEQUATE
== END 2023-04-18 05:52 | disposition home or self-care (01) ==
LOC: JD.ED 23:51
DX: K12.0 Recurrent oral aphthae (principal); B34.9 Viral infection, unspecified; E03.9 Hypothyroidism, unspecified; E66.9 Obesity, unspecified; Z79.899 Other long term (current) drug therapy; Z86.16 Personal history of COVID-19; Z88.8 Allergy status to other drugs, medicaments and biological substances
CPT/HCPCS: 0241U; 36415; 80053; 85007; 85027; 86140; 87040; 87651; 99283

== ENCOUNTER 2023-07-07 16:24 | Emergency (ER) | payer MEDICAID ==
[2023-07-07 16:53] LABS: BASOPHILS PERCENT AUTO 0.6 % (0.0-1.0); EOSINOPHILS ABSOLUTE AUTO 0.1 K/mm3 (0.0-0.4); EOSINOPHILS PERCENT AUTO 1.7 % (0.0-6.0); HEMATOCRIT 39.9 % (37.0-47.0); HEMOGLOBIN 12.7 gm/dl (12.0-16.0); IMMATURE GRAN ABSOLUTE AUTO 0.01 K/mm3 (0.00-0.05); IMMATURE GRAN PERCENT AUTO 0.1 % (0.0-0.4); LYMPHOCYTES ABSOLUTE AUTO 1.6 K/mm3 (1.0-4.8); LYMPHOCYTES PERCENT AUTO 22.9 % (24.0-44.0); MEAN CORPUSCULAR HGB CONC 31.8 g/dl (32.0-36.0); MEAN CORPUSCULAR VOLUME 87.9 fl (83.0-99.0); MEAN PLATELET VOLUME 8.8 fl (9.4-12.3); MONOCYTES ABSOLUTE AUTO 0.3 K/mm3 (0.0-0.8); MONOCYTES PERCENT AUTO 4.8 % (0.0-8.0); NEUTROPHILS ABSOLUTE AUTO 4.8 K/mm3 (1.8-7.7); NEUTROPHILS PERCENT AUTO 69.9 % (41.0-71.0); PLATELET COUNT,PLT 258 K/mm3 (150-400); RED BLOOD CELL COUNT 4.54 M/mm3 (4.10-5.30); WHITE BLOOD CELL COUNT,WBC 6.91 K/mm3 (3.9-11.3)
[2023-07-07] MEDS ORDERED: Iopamidol 755 Mg/ML 100 ML Bottle IVPUSH ONE (17:09)
[2023-07-07] MEDS ORDERED: Sodium Chloride 0.9% 10 ML Syringe FLUSH ONE (17:09)
[2023-07-07 17:10] LABS: INR 0.96; PROTHROMBIN TIME 10.3 SECONDS (9.7-12.0)
[2023-07-07 17:12] LABS: PTT,PARTIAL THROMBOPLSTIN TIME 27.6 SECONDS (21.7-31.4)
[2023-07-07] MEDS ORDERED: Sodium Chloride 0.9% 100 ML IV SCH (17:15)
[2023-07-07 17:26] LABS: A/G RATIO 0.9 (1-2); ALBUMIN 3.6 g/dl (3.4-5.0); ANION GAP 11.8 (5-15); BILIRUBIN TOTAL 0.3 mg/dL (0.2-1.0); BUN/CREATININE RATIO 8.8 (14-18); CALCIUM 9.1 mg/dL (8.5-10.1); CREATININE 1.6 mg/dL (0.55-1.02); EST CRCL DRUG DOSING (CG) 38.27 mL/min; POTASSIUM,K 3.8 mEq/L (3.5-5.1); PROTEIN TOTAL,TP 7.8 g/dl (6.4-8.2)
== END 2023-07-07 18:50 | disposition home or self-care (01) ==
LOC: JD.ED 16:24
DX: R53.1 Weakness (principal); M32.9 Systemic lupus erythematosus, unspecified; E78.00 Pure hypercholesterolemia, unspecified; K21.9 Gastro-esophageal reflux disease without esophagitis; E03.9 Hypothyroidism, unspecified; E66.9 Obesity, unspecified; Z68.35 Body mass index [BMI] 35.0-35.9, adult; Z86.16 Personal history of COVID-19; Z79.01 Long term (current) use of anticoagulants; Z79.899 Other long term (current) drug therapy; Z88.8 Allergy status to other drugs, medicaments and biological substances
CPT/HCPCS: 36415; 70450; 70496; 70498; 80053; 82947; 84484; 85025; 85610; 85730; 93005; 99285; J3490; Q9967; 93010; 99284

== ENCOUNTER 2023-09-19 16:22 | Emergency (ER) | payer MEDICAID ==
[2023-09-19] MEDS ORDERED: Sodium Chloride 0.9% 10 ML Syringe FLUSH PRN (16:59)
[2023-09-19 17:30] LABS: BASOPHILS PERCENT AUTO 0.5 % (0.0-1.0); EOSINOPHILS ABSOLUTE AUTO 0.2 K/mm3 (0.0-0.4); EOSINOPHILS PERCENT AUTO 2.7 % (0.0-6.0); HEMATOCRIT 38.6 % (37.0-47.0); HEMOGLOBIN 12.4 gm/dl (12.0-16.0); IMMATURE GRAN ABSOLUTE AUTO 0.04 K/mm3 (0.00-0.05); IMMATURE GRAN PERCENT AUTO 0.5 % (0.0-0.4); LYMPHOCYTES ABSOLUTE AUTO 1.7 K/mm3 (1.0-4.8); LYMPHOCYTES PERCENT AUTO 22.5 % (24.0-44.0); MEAN CORPUSCULAR HEMOGLOBIN 27.9 pg (28.0-32.0); MEAN CORPUSCULAR HGB CONC 32.1 g/dl (32.0-36.0); MEAN CORPUSCULAR VOLUME 86.9 fl (83.0-99.0); MEAN PLATELET VOLUME 9.6 fl (9.4-12.3); MONOCYTES ABSOLUTE AUTO 0.4 K/mm3 (0.0-0.8); MONOCYTES PERCENT AUTO 5.3 % (0.0-8.0); NEUTROPHILS ABSOLUTE AUTO 5.3 K/mm3 (1.8-7.7); NEUTROPHILS PERCENT AUTO 68.5 % (41.0-71.0); PLATELET COUNT,PLT 296 K/mm3 (150-400); RED BLOOD CELL COUNT 4.44 M/mm3 (4.10-5.30)
[2023-09-19 17:48] LABS: A/G RATIO 0.9 (1-2); ALBUMIN 3.3 g/dl (3.4-5.0); ANION GAP 14.5 (5-15); BILIRUBIN TOTAL 0.2 mg/dL (0.2-1.0); BUN/CREATININE RATIO 9.3 (14-18); CALCIUM 8.8 mg/dL (8.5-10.1); CREATININE 1.4 mg/dL (0.55-1.02); EST CRCL DRUG DOSING (CG) 43.74 mL/min; MAGNESIUM 1.6 mg/dL (1.8-2.4); POTASSIUM,K 3.5 mEq/L (3.5-5.1); PROTEIN TOTAL,TP 7.2 g/dl (6.4-8.2)
== END 2023-09-19 19:00 | disposition home or self-care (01) ==
LOC: JD.ED 16:22
DX: S13.9XXA Sprain of joints and ligaments of unspecified parts of neck, initial encounter (principal); S33.5XXA Sprain of ligaments of lumbar spine, initial encounter; N18.2 Chronic kidney disease, stage 2 (mild); E03.9 Hypothyroidism, unspecified; E66.9 Obesity, unspecified; Z68.35 Body mass index [BMI] 35.0-35.9, adult; Z88.8 Allergy status to other drugs, medicaments and biological substances; Z79.899 Other long term (current) drug therapy; Z90.710 Acquired absence of both cervix and uterus; Z86.16 Personal history of COVID-19; Z91.048 Other nonmedicinal substance allergy status; X58.XXXA Exposure to other specified factors, initial encounter
CPT/HCPCS: 36415; 70450; 70450-26; 72125; 72125-26; 72131; 72131-26; 80053; 83735; 85025; 99283; 99285

== ENCOUNTER 2024-04-20 17:18 | Emergency (ER) | payer MEDICAID | END 2024-04-20 19:13 | disposition home or self-care (01) | LOC: JD.ED 17:18 | DX: M71.22 Synovial cyst of popliteal space [Baker], left knee (principal); E78.00 Pure hypercholesterolemia, unspecified; K21.9 Gastro-esophageal reflux disease without esophagitis; N18.9 Chronic kidney disease, unspecified; E03.9 Hypothyroidism, unspecified; Z91.048 Other nonmedicinal substance allergy status; Z88.0 Allergy status to penicillin; Z88.8 Allergy status to other drugs, medicaments and biological substances; Z79.890 Hormone replacement therapy; Z79.899 Other long term (current) drug therapy; Z86.16 Personal history of COVID-19; Z90.710 Acquired absence of both cervix and uterus; Z90.49 Acquired absence of other specified parts of digestive tract | CPT/HCPCS: 93971-26-LT; 93971-LT; 99283 ==

== ENCOUNTER 2024-05-06 16:34 | Emergency (ER) | payer MEDICAID ==
[2024-05-06] MEDS: Hyoscyamine 0.125 MG Tab.SL SL ONE ×3 (18:37→18:53)
[2024-05-06] MEDS: Ondansetron 4 MG/2 ML SDV IVPUSH ONE (18:44)
[2024-05-06 18:46] LABS: BASOPHILS ABSOLUTE AUTO 0.1 K/mm3 (0.0-0.2); BASOPHILS PERCENT AUTO 0.6 % (0.0-1.0); EOSINOPHILS ABSOLUTE AUTO 0.2 K/mm3 (0.0-0.4); EOSINOPHILS PERCENT AUTO 2.6 % (0.0-6.0); HEMATOCRIT 39.3 % (37.0-47.0); HEMOGLOBIN 12.3 gm/dl (12.0-16.0); IMMATURE GRAN ABSOLUTE AUTO 0.03 K/mm3 (0.00-0.05); IMMATURE GRAN PERCENT AUTO 0.4 % (0.0-0.4); LYMPHOCYTES ABSOLUTE AUTO 1.8 K/mm3 (1.0-4.8); MEAN CORPUSCULAR HEMOGLOBIN 26.8 pg (28.0-32.0); MEAN CORPUSCULAR HGB CONC 31.3 g/dl (32.0-36.0); MEAN CORPUSCULAR VOLUME 85.6 fl (83.0-99.0); MEAN PLATELET VOLUME 9.7 fl (9.4-12.3); MONOCYTES ABSOLUTE AUTO 0.5 K/mm3 (0.0-0.8); MONOCYTES PERCENT AUTO 5.8 % (0.0-8.0); NEUTROPHILS ABSOLUTE AUTO 5.2 K/mm3 (1.8-7.7); NEUTROPHILS PERCENT AUTO 67.6 % (41.0-71.0); PLATELET COUNT,PLT 314 K/mm3 (150-400); RED BLOOD CELL COUNT 4.59 M/mm3 (4.10-5.30); WHITE BLOOD CELL COUNT,WBC 7.75 K/mm3 (3.9-11.3)
[2024-05-06] MEDS: Dextrose 5%-0.9% NaCl with KCl 1,000 ML IV SCH (18:47)
[2024-05-06 19:07] LABS: A/G RATIO 0.8 (1-2); ALBUMIN 3.3 g/dl (3.4-5.0); ANION GAP 9.9 (5-15); BILIRUBIN TOTAL 0.2 mg/dL (0.2-1.0); BUN/CREATININE RATIO 11.5 (14-18); C-REACTIVE PROTEIN 2.19 mg/dL (<0.30); CALCIUM 9.2 mg/dL (8.5-10.1); CREATININE 1.3 mg/dL (0.55-1.02); EST CRCL DRUG DOSING (CG) 46.59 mL/min; POTASSIUM,K 3.9 mEq/L (3.5-5.1); PROTEIN TOTAL,TP 7.4 g/dl (6.4-8.2)
[2024-05-06 19:18] LABS: APPEARANCE,URINE CLEAR (Clear); BILIRUBIN,URINE NEGATIVE (Negative); COLOR,URINE YELLOW (Yellow); GLUCOSE,URINE NEGATIVE (Negative); KETONES,URINE NEGATIVE (Negative); LEUKOCYTE ESTERASE,URINE NEGATIVE (Negative); NITRITE,URINE NEGATIVE (Negative); OCCULT BLOOD,URINE NEGATIVE (Negative); PH,URINE 5.5 (5.0-8.0); PROTEIN,URINE NEGATIVE (Negative); UROBILINOGEN,URINE 0.2 (0.2-1.0)
[2024-05-06] MEDS: Iopamidol 612 MG/ML 100 ML Bottle IVPUSH ONE (19:39)
[2024-05-06] MEDS: HYDROmorphone 0.5 MG/0.5 ML Syringe IVPUSH ONE (20:21)
== END 2024-05-06 21:40 | disposition home or self-care (01) ==
LOC: JD.ED 16:34
DX: R10.13 Epigastric pain (principal); Z86.16 Personal history of COVID-19; Z90.49 Acquired absence of other specified parts of digestive tract; Z90.710 Acquired absence of both cervix and uterus; E03.9 Hypothyroidism, unspecified; Z79.890 Hormone replacement therapy; Z79.899 Other long term (current) drug therapy; Z88.0 Allergy status to penicillin; Z88.8 Allergy status to other drugs, medicaments and biological substances
CPT/HCPCS: 36415; 74177; 80053; 81003; 83690; 83735; 84484; 85025; 86140; 93005; 96365; 96375; 99284; A9270; J1170; J2405; J3480; Q9967

== ENCOUNTER 2024-07-17 08:42 | Emergency (ER) | payer MEDICAID ==
[2024-07-17] MEDS: Ondansetron 4 MG/2 ML SDV IVPUSH ONE (09:59)
[2024-07-17] MEDS: Ketorolac 30 MG/ML SDV IVPUSH ONE (09:59)
[2024-07-17] MEDS: HYDROmorphone 0.5 MG/0.5 ML Syringe IVPUSH ONE (10:00)
[2024-07-17] MEDS: Sodium Chloride 0.9% 1,000 ML IV STA (10:00)
[2024-07-17] MEDS: Sodium Chloride 0.9% 10 ML Syringe FLUSH PRN (10:08)
[2024-07-17 10:22] LABS: APPEARANCE,URINE CLEAR (Clear); BILIRUBIN,URINE NEGATIVE (Negative); COLOR,URINE YELLOW (Yellow); GLUCOSE,URINE NEGATIVE (Negative); KETONES,URINE NEGATIVE (Negative); LEUKOCYTE ESTERASE,URINE NEGATIVE (Negative); NITRITE,URINE NEGATIVE (Negative); OCCULT BLOOD,URINE 2+ (Negative); PROTEIN,URINE NEGATIVE (Negative); UROBILINOGEN,URINE 0.2 (0.2-1.0)
[2024-07-17 10:30] LABS: BACTERIA,URINE FEW /hpf (FEW); MUCUS,URINE FEW /hpf (FEW); SQUAMOUS EPITHELIAL CELLS,UR 0-5 /hpf (0-5); WBC,URINE 0-5 /hpf (0-5)
[2024-07-17 10:48] LABS: BASOPHILS ABSOLUTE AUTO 0.1 K/mm3 (0.0-0.2); BASOPHILS PERCENT AUTO 0.8 % (0.0-1.0); EOSINOPHILS ABSOLUTE AUTO 0.2 K/mm3 (0.0-0.4); EOSINOPHILS PERCENT AUTO 2.9 % (0.0-6.0); HEMOGLOBIN 11.4 gm/dl (12.0-16.0); IMMATURE GRAN ABSOLUTE AUTO 0.04 K/mm3 (0.00-0.05); IMMATURE GRAN PERCENT AUTO 0.5 % (0.0-0.4); LYMPHOCYTES ABSOLUTE AUTO 2.4 K/mm3 (1.0-4.8); LYMPHOCYTES PERCENT AUTO 30.2 % (24.0-44.0); MEAN CORPUSCULAR HEMOGLOBIN 26.9 pg (28.0-32.0); MEAN CORPUSCULAR HGB CONC 30.8 g/dl (32.0-36.0); MEAN CORPUSCULAR VOLUME 87.3 fl (83.0-99.0); MEAN PLATELET VOLUME 9.4 fl (9.4-12.3); MONOCYTES ABSOLUTE AUTO 0.5 K/mm3 (0.0-0.8); MONOCYTES PERCENT AUTO 6.1 % (0.0-8.0); NEUTROPHILS ABSOLUTE AUTO 4.7 K/mm3 (1.8-7.7); NEUTROPHILS PERCENT AUTO 59.5 % (41.0-71.0); PLATELET COUNT,PLT 280 K/mm3 (150-400); RED BLOOD CELL COUNT 4.24 M/mm3 (4.10-5.30); WHITE BLOOD CELL COUNT,WBC 7.87 K/mm3 (3.9-11.3)
[2024-07-17 11:11] LABS: A/G RATIO 0.8 (1-2); ANION GAP 9.2 (5-15); BILIRUBIN TOTAL 0.2 mg/dL (0.2-1.0); BUN/CREATININE RATIO 11.7 (14-18); CALCIUM 8.6 mg/dL (8.5-10.1); CREATININE 1.2 mg/dL (0.55-1.02); EST CRCL DRUG DOSING (CG) 50.47 mL/min; POTASSIUM,K 4.2 mEq/L (3.5-5.1); PROTEIN TOTAL,TP 6.9 g/dl (6.4-8.2)
== END 2024-07-17 11:57 | disposition home or self-care (01) ==
LOC: JD.ED 08:42
DX: N13.2 Hydronephrosis with renal and ureteral calculous obstruction (principal); N23 Unspecified renal colic; E78.00 Pure hypercholesterolemia, unspecified; E03.9 Hypothyroidism, unspecified; E66.9 Obesity, unspecified; Z86.16 Personal history of COVID-19; Z79.899 Other long term (current) drug therapy; Z88.8 Allergy status to other drugs, medicaments and biological substances; Z88.0 Allergy status to penicillin; Z88.1 Allergy status to other antibiotic agents; Z68.37 Body mass index [BMI] 37.0-37.9, adult
CPT/HCPCS: 36415; 74176; 80053; 81001; 85025; 99284; J1170; J1885; J2405; J3490; J7030

== ENCOUNTER 2024-09-04 14:12 | Emergency (ER) | payer MEDICAID | END 2024-09-04 18:20 | disposition home or self-care (01) | LOC: JD.ED 14:12 | DX: R10.11 Right upper quadrant pain (principal); R10.12 Left upper quadrant pain; K21.9 Gastro-esophageal reflux disease without esophagitis; E03.9 Hypothyroidism, unspecified; E66.9 Obesity, unspecified; Z68.37 Body mass index [BMI] 37.0-37.9, adult; Z86.16 Personal history of COVID-19; Z90.49 Acquired absence of other specified parts of digestive tract; Z90.710 Acquired absence of both cervix and uterus; Z79.899 Other long term (current) drug therapy; Z88.9 Allergy status to unspecified drugs, medicaments and biological substances; Z88.0 Allergy status to penicillin; Z88.5 Allergy status to narcotic agent; Z91.018 Allergy to other foods; Z88.8 Allergy status to other drugs, medicaments and biological substances | CPT/HCPCS: 74176; 74176-26; 99284 ==

== ENCOUNTER 2024-11-21 00:20 | Emergency (ER) | payer MEDICAID ==
[2024-11-21] MEDS ORDERED: Naloxone 0.4 MG/ML SDV IVPUSH PRN ×2 (02:53→03:44)
[2024-11-21] MEDS ORDERED: Morphine 4 MG/ML Syringe IVPUSH ONE (02:53)
[2024-11-21] MEDS ORDERED: Ondansetron 4 MG/2 ML SDV IVPUSH ONE (02:54)
[2024-11-21 03:37] LABS: BASOPHILS ABSOLUTE AUTO 0.1 K/mm3 (0.0-0.2); BASOPHILS PERCENT AUTO 0.6 % (0.0-1.0); EOSINOPHILS ABSOLUTE AUTO 0.2 K/mm3 (0.0-0.4); EOSINOPHILS PERCENT AUTO 2.4 % (0.0-6.0); HEMATOCRIT 39.3 % (37.0-47.0); IMMATURE GRAN ABSOLUTE AUTO 0.04 K/mm3 (0.00-0.05); IMMATURE GRAN PERCENT AUTO 0.4 % (0.0-0.4); LYMPHOCYTES ABSOLUTE AUTO 1.7 K/mm3 (1.0-4.8); LYMPHOCYTES PERCENT AUTO 18.4 % (24.0-44.0); MEAN CORPUSCULAR HEMOGLOBIN 25.8 pg (28.0-32.0); MEAN CORPUSCULAR HGB CONC 30.5 g/dl (32.0-36.0); MEAN CORPUSCULAR VOLUME 84.3 fl (83.0-99.0); MEAN PLATELET VOLUME 9.6 fl (9.4-12.3); MONOCYTES ABSOLUTE AUTO 0.5 K/mm3 (0.0-0.8); MONOCYTES PERCENT AUTO 5.5 % (0.0-8.0); NEUTROPHILS ABSOLUTE AUTO 6.8 K/mm3 (1.8-7.7); NEUTROPHILS PERCENT AUTO 72.7 % (41.0-71.0); PLATELET COUNT,PLT 249 K/mm3 (150-400); RED BLOOD CELL COUNT 4.66 M/mm3 (4.10-5.30); WHITE BLOOD CELL COUNT,WBC 9.33 K/mm3 (3.9-11.3)
[2024-11-21] MEDS: Morphine 4 MG/ML Syringe IVPUSH ONE (03:51)
[2024-11-21] MEDS: Ondansetron 4 MG/2 ML SDV IVPUSH ONE (03:52)
[2024-11-21] MEDS: Morphine 4 MG/ML Syringe IM ONE (03:54)
[2024-11-21] MEDS: Ondansetron 4 MG Tab.DIS PO ONE (03:54)
[2024-11-21 04:04] LABS: A/G RATIO 0.7 (1-2); ALBUMIN 3.1 g/dl (3.4-5.0); ANION GAP 11.4 (5-15); BILIRUBIN TOTAL 0.2 mg/dL (0.2-1.0); BUN/CREATININE RATIO 13.3 (14-18); C-REACTIVE PROTEIN 4.99 mg/dL (<0.30); CALCIUM 8.7 mg/dL (8.5-10.1); CREATININE 1.2 mg/dL (0.55-1.02); EST CRCL DRUG DOSING (CG) 56.58 mL/min; PROTEIN TOTAL,TP 7.4 g/dl (6.4-8.2)
[2024-11-21 04:05] LABS: POTASSIUM,K 4.4 mEq/L (3.5-5.1)
[2024-11-21] MEDS: Iopamidol 612 MG/ML 100 ML Bottle IVPUSH ONE (04:36)
[2024-11-21] MEDS: Sodium Chloride 0.9% 10 ML Syringe FLUSH PRN (04:36)
== END 2024-11-21 05:42 | disposition home or self-care (01) ==
LOC: JD.ED 00:20
DX: G89.18 Other acute postprocedural pain (principal); M25.511 Pain in right shoulder; E78.00 Pure hypercholesterolemia, unspecified; E03.9 Hypothyroidism, unspecified; Z91.048 Other nonmedicinal substance allergy status; Z88.0 Allergy status to penicillin; Z91.010 Allergy to peanuts; Z88.8 Allergy status to other drugs, medicaments and biological substances; Z79.890 Hormone replacement therapy; Z79.899 Other long term (current) drug therapy; Z79.82 Long term (current) use of aspirin; Z86.16 Personal history of COVID-19; Z90.710 Acquired absence of both cervix and uterus; Z90.49 Acquired absence of other specified parts of digestive tract
CPT/HCPCS: 36415; 71260; 80053; 85025; 86140; 96374; 96375; 99284; J2270; J2405; Q9967

== ENCOUNTER 2025-01-06 14:42 | Emergency (ER) | payer MEDICAID ==
[2025-01-06 16:13] LABS: BASOPHILS ABSOLUTE AUTO 0.1 K/mm3 (0.0-0.2); BASOPHILS PERCENT AUTO 0.7 % (0.0-1.0); EOSINOPHILS ABSOLUTE AUTO 0.2 K/mm3 (0.0-0.4); HEMATOCRIT 38.8 % (37.0-47.0); HEMOGLOBIN 12.2 gm/dl (12.0-16.0); IMMATURE GRAN ABSOLUTE AUTO 0.03 K/mm3 (0.00-0.05); IMMATURE GRAN PERCENT AUTO 0.3 % (0.0-0.4); LYMPHOCYTES ABSOLUTE AUTO 1.8 K/mm3 (1.0-4.8); LYMPHOCYTES PERCENT AUTO 20.6 % (24.0-44.0); MEAN CORPUSCULAR HEMOGLOBIN 26.3 pg (28.0-32.0); MEAN CORPUSCULAR HGB CONC 31.4 g/dl (32.0-36.0); MEAN CORPUSCULAR VOLUME 83.6 fl (83.0-99.0); MEAN PLATELET VOLUME 9.7 fl (9.4-12.3); MONOCYTES ABSOLUTE AUTO 0.5 K/mm3 (0.0-0.8); NEUTROPHILS ABSOLUTE AUTO 6.1 K/mm3 (1.8-7.7); NEUTROPHILS PERCENT AUTO 70.4 % (41.0-71.0); PLATELET COUNT,PLT 295 K/mm3 (150-400); RED BLOOD CELL COUNT 4.64 M/mm3 (4.10-5.30); WHITE BLOOD CELL COUNT,WBC 8.61 K/mm3 (3.9-11.3)
[2025-01-06 16:31] LABS: A/G RATIO 0.9 (1-2); ALBUMIN 3.6 g/dl (3.4-5.0); ANION GAP 18.2 (5-15); BILIRUBIN TOTAL 0.3 mg/dL (0.2-1.0); CALCIUM 9.2 mg/dL (8.5-10.1); CREATININE 1.5 mg/dL (0.55-1.02); EST CRCL DRUG DOSING (CG) 39.93 mL/min; MAGNESIUM 1.9 mg/dL (1.8-2.4); POTASSIUM,K 3.2 mEq/L (3.5-5.1); PROTEIN TOTAL,TP 7.7 g/dl (6.4-8.2)
[2025-01-06] MEDS: Potassium Chloride 20 MEQ Tab.ER PO ONE (17:20)
== END 2025-01-06 17:15 | disposition home or self-care (01) ==
LOC: JD.ED 14:42
DX: E87.6 Hypokalemia (principal); E78.00 Pure hypercholesterolemia, unspecified; N18.9 Chronic kidney disease, unspecified; E03.9 Hypothyroidism, unspecified; Z91.048 Other nonmedicinal substance allergy status; Z88.0 Allergy status to penicillin; Z91.011 Allergy to milk products; Z88.8 Allergy status to other drugs, medicaments and biological substances; Z79.890 Hormone replacement therapy; Z79.82 Long term (current) use of aspirin; Z79.899 Other long term (current) drug therapy; Z86.16 Personal history of COVID-19
CPT/HCPCS: 36415; 70450; 70450-26; 80053; 83735; 85025; 99285; A9270-GY

== ENCOUNTER 2025-04-18 20:08 | Emergency (ER) | payer MEDICAID ==
[2025-04-18] MEDS ORDERED: Sodium Chloride 0.9% 10 ML Syringe FLUSH PRN (20:20)
[2025-04-18] MEDS: methylPREDNISolone Sodium Succinate 125 MG/2 ML SDV IVPUSH ONE (21:01)
== END 2025-04-18 23:51 | disposition home or self-care (01) ==
LOC: JD.ED 20:08
DX: R06.02 Shortness of breath (principal); T50.3X5A Adverse effect of electrolytic, caloric and water-balance agents, initial encounter; N18.9 Chronic kidney disease, unspecified; E78.00 Pure hypercholesterolemia, unspecified; K21.9 Gastro-esophageal reflux disease without esophagitis; E03.9 Hypothyroidism, unspecified; Z86.16 Personal history of COVID-19; Z88.0 Allergy status to penicillin; Z88.8 Allergy status to other drugs, medicaments and biological substances; Z91.011 Allergy to milk products; Z91.010 Allergy to peanuts; Z79.82 Long term (current) use of aspirin; Z79.890 Hormone replacement therapy; Z79.899 Other long term (current) drug therapy
CPT/HCPCS: 96374; 99283; J2919

== ENCOUNTER 2025-09-14 15:54 | Emergency (ER) | payer MEDICAID | END 2025-09-14 17:53 | disposition home or self-care (01) | LOC: JD.ED 15:54 | DX: S06.0XAA Concussion with loss of consciousness status unknown, initial encounter (principal); E78.00 Pure hypercholesterolemia, unspecified; K21.9 Gastro-esophageal reflux disease without esophagitis; E03.9 Hypothyroidism, unspecified; Z88.0 Allergy status to penicillin; Z91.048 Other nonmedicinal substance allergy status; Z91.0110 Allergy to milk products, unspecified; Z91.010 Allergy to peanuts; Z79.899 Other long term (current) drug therapy; Z79.890 Hormone replacement therapy; Z79.82 Long term (current) use of aspirin; Z86.16 Personal history of COVID-19; W00.0XXA Fall on same level due to ice and snow, initial encounter; Y93.89 Activity, other specified | CPT/HCPCS: 70450; 70450-26; 72125; 72125-26; 99283 ==